=== PATIENT | male | born 1975 | race Two or more races ===

== ENCOUNTER 2018-01-20 12:36 | Emergency (ER) | payer OTHER ==
[~2018-01-20] VITALS: Ht 170.2 cm; Wt 74.8 kg
--- NOTE | 2018-01-20 12:53 | Emergency Room Report ---
History of Present Illness General Chief Complaint: Syncope Source: Patient Present Illness HPI Patient is a 43-year-old male who presented after increased left-sided elbow pain after a fall off of a ladder. Patient was having increased pain to the left side of his chest. The patient reports having fallen approximately 5 feet. He states that he struck his left side onto the ladder as he fell. The patient was noted to have syncopal episode after attempting to stand up. The patient denies any low back pain or pain to his lower extremities. The patient denies hitting his head or neck or back pain. The injury occurred just prior to arrival. Patient denies prior medical history. He denies any allergies. Allergies: Coded Allergies: No Known Allergies (Unverified , 01/20/18) Patient History Past Medical History: unable to obtain Reviewed Nursing Documentation: PMH: Agreed; PSxH: Agreed Nursing Documentation-PM Past Medical History: No Stated History Review of Systems All Other Systems: negative except mentioned in HPI Physical Exam Vital Signs Date Time Temp Pulse Resp B/P (MAP) Pulse Ox O2 Delivery O2 Flow Rate FiO2 01/20/18 12:29 98.1 72 14 94/68 98 Room Air 98.1 Sp02 EP Interpretation: reviewed, normal General Appearance: normal inspection, alert, no apparent distress, GCS 15 Head: normocephalic, atraumatic Eyes: normal eye exam, PERRL, EOMI, lids + conjunctiva normal, no hyphema, no racoon eyes ENT: normal ENT inspection, TMs + canals normal, oropharynx normal, no pena signs Neck: trach midline, no bony tend, full range of motion without pain Respiratory: effort normal, no retractions, clear to auscultation, chest symmetrical, palpation of chest normal, speaking in full sentences Cardiovascular: regular rate, rhythm, no JVD Cardiovascular #2: 2+ radial (R), 2+ radial (L), 2+ dorsalis pedis (R), 2+ dorsalis pedis (L) Gastrointestinal: normal inspection, non-tender, non-distended, no rebound/ guarding, normal bowel sounds Genitourinary: normal inspection Musculoskeletal: back normal, other - left elbow soft tissue swelling, decreased ROM Skin: no rash, no lacerations, normal palpation Lymphatic: normal inspection Neurologic: normal inspection, CN II-XII intact, oriented x3, sensory intact, motor strength/tone normal, normal speech Psychiatric: normal inspection, memory normal, mood normal, no suicidal/ homicidal ideation Medical Decision Making Diagnostic Impression: Primary Impression: Syncope Additional Impression: Olecranon fracture ER Course The patient presented after a fall. Differential diagnosis included was not limited to rib fracture, cardiac arrhythmia, elbow fracture, dislocation, among others.Because of complexity of patient's case laboratory testing and imaging studies were ordered.The patient initially noted to be hypotensive by EMS. He was started on IV fluids. Patient was noted to have the initial FAST exam which showed no evidence of the pericardial effusion or hemoperitoneum. The patient was noted to have a recurrent episode of bradycardia. The patient was noted to have bradycardia as low as 30 bpm. This resolved spontaneously the patient was given a total of 8 mg of morphine IV. Patient continues to be awake and alert. The patient's elbow was reexamined was noted to be increasingly swollen. The patient was discussed with Dr. Tarango at [facility] for higher level of care transfer. Labs Test 01/20/18 13:00 White Blood Count 9.0 K/UL (4.8-10.8) Red Blood Count 4.28 M/UL (4.70-6.10) Hemoglobin 12.9 G/DL (14.2-18.0) Hematocrit 38.0 % (42.0-52.0) Mean Corpuscular Volume 89 FL (80-99) Mean Corpuscular Hemoglobin 30.1 PG (27.0-31.0) Mean Corpuscular Hemoglobin Concent 33.8 G/DL (32.0-36.0) Red Cell Distribution Width 10.9 % (11.6-14.8) Platelet Count 192 K/UL (150-450) Mean Platelet Volume 8.8 FL (6.5-10.1) Neutrophils (%) (Auto) 75.7 % (45.0-75.0) Lymphocytes (%) (Auto) 19.1 % (20.0-45.0) Monocytes (%) (Auto) 4.4 % (1.0-10.0) Eosinophils (%) (Auto) 0.2 % (0.0-3.0) Basophils (%) (Auto) 0.6 % (0.0-2.0) Prothrombin Time 10.9 SEC (9.30-11.50) Prothromb Time International Ratio 1.0 (0.9-1.1) Activated Partial Thromboplast Time 22 SEC (23-33) Sodium Level 141 MMOL/L (136-145) Potassium Level 3.5 MMOL/L (3.5-5.1) Chloride Level 108 MMOL/L (98-107) Carbon Dioxide Level 24 MMOL/L (21-32) Anion Gap 9 mmol/L (5-15) Blood Urea Nitrogen 14 mg/dL (7-18) Creatinine 0.8 MG/DL (0.55-1.30) Estimat Glomerular Filtration Rate > 60 mL/min (>60) Glucose Level 126 MG/DL (74-106) Calcium Level 8.2 MG/DL (8.5-10.1) Total Bilirubin 0.4 MG/DL (0.2-1.0) Aspartate Amino Transf (AST/SGOT) 17 U/L (15-37) Alanine Aminotransferase (ALT/SGPT) 26 U/L (12-78) Alkaline Phosphatase 68 U/L (46-116) Troponin I 0.000 ng/mL (0.000-0.056) Total Protein 6.7 G/DL (6.4-8.2) Albumin 3.4 G/DL (3.4-5.0) Globulin 3.3 g/dL Albumin/Globulin Ratio 1.0 (1.0-2.7) EKG Diagnostic Results Rate: normal Rhythm: NSR ST Segments: no acute changes Rhythm Strip Diag. Results EP Interpretation: yes Rhythm: NSR, no PVC's, no ectopy Last Vital Signs Date Time Temp Pulse Resp B/P (MAP) Pulse Ox O2 Delivery O2 Flow Rate FiO2 01/20/18 12:29 98.1 72 14 94/68 98 Room Air 98.1 Status: improved Disposition: XFER SHT-TRM HOSP Condition: Serious Levi Hernandez MD Jan 20, 2018 12:53
[2018-01-20] MEDS ORDERED: Morphine Sulfate 4mg/ml Inj IVP ONE ×3 (13:00→19:00)
[2018-01-20 13:15] LABS: BASOPHILS % (AUTO) 0.6 % (0.0-2.0); EOSINOPHILS % (AUTO) 0.2 % (0.0-3.0); HEMOGLOBIN 12.9 G/DL (14.2-18.0); LYMPHOCYTES % (AUTO) 19.1 % (20.0-45.0); MEAN CORPUSCULAR VOLUME 89 FL (80-99); MONOCYTES % (AUTO) 4.4 % (1.0-10.0); NEUTROPHILS % (AUTO) 75.7 % (45.0-75.0); PLATELET COUNT 192 K/UL (150-450); RED BLOOD COUNT 4.28 M/UL (4.70-6.10); RED CELL DISTRIBUTION WIDTH 10.9 % (11.6-14.8)
[2018-01-20 13:24] LABS: ANION GAP 9 mmol/L (5-15); BLOOD UREA NITROGEN 14 mg/dL (7-18); CALCIUM 8.2 MG/DL (8.5-10.1); CARBON DIOXIDE 24 MMOL/L (21-32); CHLORIDE 108 MMOL/L (98-107); CREATININE 0.8 MG/DL (0.55-1.30); POTASSIUM 3.5 MMOL/L (3.5-5.1); SODIUM 141 MMOL/L (136-145)
[2018-01-20 13:30] VITALS: BP 105/58
[2018-01-20] MEDS ORDERED: Isovue-370 150ml vial INJ PRN (13:30)
[2018-01-20 13:31] LABS: ALANINE AMINOTRANSFERASE 26 U/L (12-78); ALBUMIN 3.4 G/DL (3.4-5.0); ALKALINE PHOSPHATASE 68 U/L (46-116); ASPARTATE AMINO TRANSFERASE 17 U/L (15-37); BILIRUBIN,TOTAL 0.4 MG/DL (0.2-1.0)
[2018-01-20 15:25] VITALS: BP 110/75
[2018-01-20 15:31] VITALS: BP 99/65
[2018-01-20 17:30] VITALS: BP 112/68
[2018-01-20 20:15] VITALS: BP 111/67
--- NOTE | 2018-01-21 08:41 | Diagnostic Imaging Report ---
Indications:Pain, status post fall Technique: Three or 4 views of the left elbow Comparison: None Findings: There is a comminuted mildly displaced fracture of the proximal ulna, extending into the articular surface. The radius is not well visualized but is also fractured proximally. There is a large joint effusion Impression: Positive for proximal radial and ulnar fractures
--- NOTE | 2018-01-21 08:47 | Diagnostic Imaging Report ---
ndication: Pain Technique: IV administration nonionic contrast. Spiral acquisitions obtained from the lung bases to the lung apices. Multiplanar and 3-D reconstructions were generated. Total dose length product 1125.65 mGycm. CTDIvol(s) 36.75 mGy. Dose reduction achieved using automated exposure control Comparison: none Findings: There is good quality opacification of the pulmonary arteries. No intraluminal filling defects or other findings to suggest acute pulmonary embolus are evident. Normal caliber pulmonary arteries. Normal right ventricular size. There is mild four-chamber cardiomegaly, however. No evidence of thoracic aortic aneurysm or dissection. The lungs demonstrate posterior dependent atelectatic changes. At the bases, there is some interstitial septal thickening, particularly posteriorly. No focal airspace consolidation. No effusions. No pericardial effusion. No mediastinal or hilar mass or adenopathy demonstrated. Included thyroid is unremarkable. No axillary or chest wall mass or adenopathy. The bones are unremarkable. The included upper abdominal anatomy is unremarkable. Impression: No evidence of acute pulmonary embolus or other acute thoracic vascular pathology Bilateral basilar compressive atelectasis. Equivocal mild interstitial prominence, nonspecific, could indicate mild interstitial edema Borderline cardiomegaly This essentially agrees with the preliminary interpretation provided overnight by [facility] service The CT scanner at [facility] is accredited by the [employer] and the scans are performed using protocols designed to limit radiation exposure to as low as reasonably achievable to attain images of sufficient resolution adequate for diagnostic evaluation.
--- NOTE | 2018-01-21 10:57 | Diagnostic Imaging Report ---
Indication: Reason For Exam: FALL Technique: Continuous helical CT scanning of the head was performed without intravenous contrast material. Axial and coronal 5 mm sections were generated. Radiation dose was minimized using automated exposure control Dose: Total Dose Length Product - DLP 1379.[address] Dose Index - CTDIvol(s) 70.38 mGy. Comparison: none Findings: The ventricular system is normal in size and configuration. There is no shift of midline structures. No abnormal extra-axial fluid collections are noted. There is no evidence of intracerebral bleeding. No other abnormal high or low density areas are noted within the brain. There is opacification of the right mastoids. There is also some sclerosis of the mastoids on the right. Impression: Normal CT scan of the head without contrast material. Incidental finding right-sided mastoid disease The CT scanner at [facility] is accredited by the [employer] and the scans are performed using protocols designed to limit radiation exposure to as low as reasonably achievable to attain images of sufficient resolution adequate for diagnostic evaluation.
--- NOTE | 2018-01-21 11:30 | Diagnostic Imaging Report ---
Indication: Abdominal pain, trauma Technique: Spiral acquisitions obtained through the abdomen and pelvis. No oral contrast utilized, per emergency room physician request No IV contrast utilized, per referring physician request.. Multiplanar reconstructions were generated. Total dose length product 1004.79 mGycm. CTDIvol(s) 16.58 mGy. Dose reduction achieved using automated exposure control Comparison: None Findings: There is no evidence of fracture. There is no evidence of soft tissue contusion or hematoma demonstrated. Contrast is seen within the renal collecting systems and bladder from recent chest CT injection Lack of current IV contrast administration limits assessment of the solid organs. The liver, gallbladder, bile ducts, pancreas, spleen, adrenals, Kidneys are unremarkable. No retroperitoneal or mesenteric mass or adenopathy. No pelvic mass or adenopathy. The prostate is somewhat prominent for age. There is a small left inguinal hernia which contains only fat. The appendix is normal. There are a few scattered colonic diverticula. No evidence of diverticulitis. No small bowel distention. No free or loculated intraperitoneal air or fluid is evident. The distal esophagus, stomach, duodenum are unremarkable. Posterior dependent atelectatic changes and interstitial septal thickening are seen at the lung bases. The heart is borderline enlarged. Impression: No acute abdominal or pelvic abnormality. No definite evidence of acute bony or solid organ trauma, although evaluation for the latter is somewhat limited by lack of IV contrast administration Colonic diverticulosis. No evidence of diverticulitis Dependent pulmonary atelectatic changes and interstitial septal thickening, also described on recent chest CT Borderline cardiomegaly Prostatomegaly Incidental finding of small fat-containing left inguinal hernia This agrees with the preliminary interpretation provided overnight by [facility]. The CT scanner at [facility] is accredited by the [employer] and the scans are performed using protocols designed to limit radiation exposure to as low as reasonably achievable to attain images of sufficient resolution adequate for diagnostic evaluation.
== END 2018-01-20 20:15 | disposition short-term general hospital (02) ==
LOC: EDBD 12:36 → EMR 13:00 → EDBD 13:00 → EMR 20:15
DX: S52.022A Displaced fracture of olecranon process without intraarticular extension of left ulna, initial encounter for closed fracture (principal); R55 Syncope and collapse; K57.90 Diverticulosis of intestine, part unspecified, without perforation or abscess without bleeding; K40.90 Unilateral inguinal hernia, without obstruction or gangrene, not specified as recurrent; R07.9 Chest pain, unspecified; W11.XXXA Fall on and from ladder, initial encounter; Y92.9 Unspecified place or not applicable
CPT/HCPCS: 36415; 70450; 71275; 73080; 74176; 80053; 84484; 85025; 85610; 85730; 93005; 99285; J2270; J2405; Q9967